=== PATIENT | female | born 1975 | race Caucasian/White ===

== ENCOUNTER 2022-06-29 12:33 | Emergency (ER) | payer BC, OTHER ==
[2022-06-29] MEDS ORDERED: Ketorolac Tromethamine 60 MG/2 ML VIAL ONE (12:49)
[2022-06-29] MEDS ORDERED: Diazepam 5 MG TAB ONE (12:49)
== END 2022-06-29 13:07 | disposition home or self-care (01) ==
LOC: BURERS 12:33
DX: S39.012A Strain of muscle, fascia and tendon of lower back, initial encounter (principal)
CPT/HCPCS: 96372; 99283; J1885